=== PATIENT | female | born 1980 | race Caucasian/White ===

== ENCOUNTER → 2018-11-20 | Outpatient (CLI) | payer OTHER ==
[2018-11-20 15:58] LABS: DHEA Sulfate 38.9 ug/dL (26.0-430.0)
[2018-11-20 16:01] LABS: Insulin Level 13.5 mIU/mL (3.0-25.0)
[2018-11-20 16:13] LABS: Thyroid Peroxidase Antibodies <28.0 U/mL (0.0-60.0); Vitamin D 25 Hydroxy 10.6 ng/mL (30.0-100.0)
[2018-11-20 16:24] LABS: ALT 15 U/L (8-44); AST 18 U/L (13-35); Glucose 88 mg/dL (70-110)
[2018-11-20 16:44] LABS: HCG,Quantitative Serum <2.0 mIU/mL
[2018-11-20 18:09] LABS: Hemoglobin A1C 5.3 % (4.0-6.0)
[2018-11-21 04:54] LABS: Varicella IgM Antibody 0.31 INDEX (<=0.90)
[2018-11-21 12:16] LABS: Anti-Mullerian Hormone <0.08 ng/mL (0.18 - 5.68)
== END | disposition home or self-care (01) ==
LOC: LABWHC1 10:10
PROVIDERS: ATTEND Physician Assistant
DX: N92.6 Irregular menstruation, unspecified (principal); E28.2 Polycystic ovarian syndrome
CPT/HCPCS: 36415; 82306; 82397; 82565; 82627; 82670; 82947; 83001; 83036; 83498; 83525; 84146; 84403; 84439; 84443; 84450; 84460; 84481; 84520; 84702; 86376; 86762; 86787; 86800; 86850; 86900; 86901

== ENCOUNTER → 2019-01-08 | Outpatient (CLI) | payer OTHER | END | disposition home or self-care (01) | LOC: LABWHC1 09:06 | PROVIDERS: ATTEND Obstetrics & Gynecology Reproductive Endocrinology | DX: Z32.00 Encounter for pregnancy test, result unknown (principal) | CPT/HCPCS: 36415; 84702 ==

== ENCOUNTER → 2024-06-17 | Outpatient (CLI) | payer BC ==
--- NOTE | 2024-06-18 13:53 | MM ---
Reason for Exam: Screening (asymptomatic). Baseline mammogram. Patient History: Menarche at age 9. Patient has no children. Last menstrual period: Risk Values: Lisa 5 year model risk: 0.9%. NCI Lifetime model risk: 11.8%. Prior Study Comparison: Patient's first Mammogram. Tissue Density: The breasts are heterogeneously dense, which may obscure small masses. Findings: Analyzed By CAD. There is no suspicious group of microcalcifications or new suspicious mass in either breast. Overall Assessment: Negative, BI-RAD 1 Management: Screening Mammogram of both breasts in 1 year. . Patient should continue monthly self-breast exams. A clinical breast exam by your physician is recommended on an annual basis. This exam should not preclude additional follow-up of suspicious palpable abnormalities. Note on Lisa scores and lifetime risk: 1. A Lisa score greater than 3% is considered moderate risk. If this is the case, consider specialist referral to assess eligibility for a risk reducing agent. 2. If overall lifetime risk for the development of breast cancer is 20% or higher, the patient may qualify for future screening with alternating mammogram and breast MRI. Electronically signed and approved by: Ruddy Rosario M.D. [facility]
== END | disposition home or self-care (01) ==
LOC: RADMAMWWP 06:46
PROVIDERS: ATTEND Family Medicine
DX: Z12.31 Encounter for screening mammogram for malignant neoplasm of breast (principal); R92.333 Mammographic heterogeneous density, bilateral breasts
CPT/HCPCS: 77067